=== PATIENT | female | born 1985 | race African-American/Black ===

== ENCOUNTER 2018-01-27 08:12 | Emergency (ER) | payer OTHER ==
--- NOTE | 2018-01-27 08:42 | ED Physician Documentation ---
Abdominal Pain - HISTORIAN Historian: patient - HPI Chief Complaint: Abdominal Pain Additonal Information: rlq abd pain onsdet aprox 1 week-pain w/bm assoc nausea anorexia. pain rad rt lo back and rt leg Onset: days ago (7) Duration: constant, waxing, waning, other (pain constant but acute sharp exab which rad down rt leg and rt thoraco lumbar area) Timing: worse Context: denies: out of country travel, bad food, recent trauma Severity: moderate, severe Quality: pain, dull, sharp (exab) Associated Symptoms: nausea (x 2 days no emesis pos anorexia bowels kicneys ok bm normal color soft but nodiarrhea), loss of appetite Exacerbated by: movements (hurts worse with tension abd muscles or any jarring condition) Relieved by: remaining still - ROS CONST: no problems (no other problems indicated) GI/: denies: constipation, black stools, bloody urine, bloody stools, dark urine CVS/RESP: none EYES/ENT: none MS/SKIN/LYMPH: denies: joint pain, leg swelling, rash, swollen glands NEURO/PSYCH: denies: headache, dizziness, light-headedness, anxiety - SOCIAL HX Smoking History: less than 1 pack/day Alcohol Use: rarely Drug Use: none (down to two cigarettes daily-trying to quit) - FAMILY HX Family History: no significant history - PAST HX Past History: GERD (ov cystsd =-small rt OC x2 - seen by lining strap closer 2weeks ago) Ischemic Bowel Risk Factors: none Other History: none Surgeries/Procedures: appendectomy (ov cysts--rem appy at time), cholecystectomy Allergies/Adverse Reactions: Allergies Allergy/AdvReac Type Severity Reaction Status Date / Time Sulfa (Sulfonamide Allergy Verified 01/27/18 08:52 Antibiotics) - VITAL SIGNS Vital Signs: Vital Signs Temp Pulse Resp BP Pulse Ox 97.7 F 109 H 16 135/106 99 01/27/18 08:12 01/27/18 08:12 01/27/18 08:12 01/27/18 08:12 01/27/18 08:12 - REVIEWED ASSESSMENTS Nursing Assessment Reviewed: Yes Vitals Reviewed: Yes ED Results Lab/Radiology - Lab Results Lab Results: Lab Results 07/18/18 07/18/18 07/18/18 10:45 10:45 09:15 WBC 6.90 K/ul K/ul (4.00-12.00) RBC 4.35 M/ul M/ul (3.90-5.20) Hgb 13.3 g/dL g/dL (12.0-16.0) Hct 41.2 % % (34.5-46.5) MCV 94.6 fl fl (80.0-100.0) MCH 30.5 pg pg (28.0-34.0) MCHC 32.3 g/dL g/dL (30.0-36.0) RDW 11.8 % % (11.3-14.3) Plt Count 294 K/mm3 K/mm3 (130-400) Neut % (Auto) 76.4 % % (39.0-79.0) Lymph % (Auto) 15.1 % L % (16.0-50.0) [place] % (Auto) 5.2 % % (0.0-11.0) Eos % (Auto) 1.9 % % (0.0-6.8) Baso % (Auto) 0.1 (0.0-1.5) Neut # (Auto) 5.3 # k/uL # k/uL (1.4-7.7) Lymph # (Auto) 1.0 # k/uL # k/uL (0.6-4.0) [place] # (Auto) 0.4 # k/uL # k/uL (0.0-0.9) Eos # (Auto) 0.1 # k/uL # k/uL (0.0-0.6) Baso # (Auto) 0.0 # k/uL # k/uL (0.0-0.5) Reactive Lymphs % 1.2 % % (0.0-5.0) Reactive Lymphs # 0.1 # k/uL # k/uL (0.0-0.8) Sodium 141 mmol/L mmol/L (136-145) Potassium 3.5 mmol/L mmol/L (3.5-5.1) Chloride 104 mmol/L mmol/L (98-107) Carbon Dioxide 27 mmol/L mmol/L (22-30) BUN 10 mg/dL mg/dL (7-17) Creatinine 0.70 mg/dL mg/dL (0.52-1.04) Estimated Creat Clear 156 Est GFR ( Amer) > 60 (60 - ) Est GFR (Non-Af Amer) > 60 (60 - ) Glucose 97 mg/dL mg/dL (74-106) Calcium 9.3 mg/dL mg/dL (8.4-10.2) Total Bilirubin 0.7 mg/dL mg/dL (0.2-1.3) AST 22 U/L U/L (15-46) ALT 25 U/L U/L (13-69) Alkaline Phosphatase 60 U/L U/L (38-126) Total Protein 8.2 g/dL g/dL (6.3-8.2) Albumin 4.4 g/dL g/dL (3.5-5.0) Urine Color Yellow (YELLOW) Urine Appearance Clear (CLEAR) Urine pH 7.5 (5.0 - 8.0) Ur Specific [place] 1.020 (1.010-1.030) Urine Protein Negative mg/dL mg/dL (NEGATIVE) Urine Ketones Negative mg/dL mg/dL (NEGATIVE) Urine Occult Blood Trace-intact H (NEGATIVE) Urine Nitrite Negative (NEGATIVE) Urine Bilirubin Negative (NEGATIVE) Urine Urobilinogen 1.0 Eu Eu (0.2-1.0) Ur Leukocyte Esterase Negative (NEGATIVE) Urine Glucose Negative mg/dL mg/dL (NEGATIVE) - Orders Orders: ED Orders Category Date Time Status ABD SERIES PA CHEST [RAD] Stat Exams 01/27/18 Completed CBC/PLATELET/DIFF Routine Lab 01/27/18 10:45 Completed CMP Routine Lab 01/27/18 10:45 Completed UA MACRO DIP ONLY Routine Lab 01/27/18 09:15 Completed traMADol HCL [Ultram] Med 01/27/18 11:52 Discontinued 50 mg PO NOW ONE Abdominal Pain Physical Exam - Physical Exam General Appearance: mild distress, moderate distress EENT: eye inspection normal NECK: normal inspection, thyroid normal, supple RESPIRATORY: no resp distress, chest non-tender, breath sounds normal, rhonchi. No: wheezes, rales CVS: reg rate & rhythm ABDOMEN: soft, tenderness (rt lq tender w/ slight rebound) BACK: normal inspection, no CVA tenderness, CVA tenderness (R), CVA tenderness ( L) SKIN: warm/dry, normal color. No: cyanosis, diaphoresis, mottled EXTREMITIES: non-tender, normal range of motion, no evidence of injury, no edema NEURO: oriented X3, motor nml, sensation nml, mood/affect nml, cognition normal Vital Signs: Vital Signs Temp Pulse Resp BP Pulse Ox 97.7 F 109 H 16 135/106 99 01/27/18 08:12 01/27/18 08:12 01/27/18 08:12 01/27/18 08:12 01/27/18 08:12 Discharge Clincal Impression: un dx abd pain Referrals: Primary Doctor,No [Primary Care Provider] - 2 Days Comments: pt states had to leave re children-signed AMA eval incomplete' pt states she will try laxative and ret if no relief Condition: Stable Disposition: AGAINST MEDICAL ADVICE Decision to Admit: NO Decision Time: 18:42
[2018-01-27 08:52] VITALS: BP 135/106
[2018-01-27 10:51] LABS: BASOPHILS % 0.1 (0.0-1.5); EOSINOPHILS % 1.9 % (0.0-6.8); MEAN CORPUSCULAR HEMOGLOBIN 30.5 pg (28.0-34.0); MEAN CORPUSCULAR VOLUME 94.6 fl (80.0-100.0); MONOCYTES % 5.2 % (0.0-11.0); NEUTROPHILS # 5.3 # k/uL (1.4-7.7)
[2018-01-27 11:03] LABS: eGFR (African) > 60; eGFR (Non-African) > 60
[2018-01-27 11:40] LABS: APPEARANCE,URINE CLEAR (CLEAR); COLOR,URINE YELLOW (YELLOW); OCCULT BLOOD,URINE TRACE-INTACT (NEGATIVE); PH URINE 7.5 (5.0 - 8.0)
[2018-01-27] MEDS ORDERED: traMADol HCL 50 MG TABLET PO ONE (11:52)
--- NOTE | 2018-01-27 18:34 | Diagnostic Imaging Report ---
BREANNA CARDONA [facility] [address] [facility] [address] [place], [place]. [address] Report Submission Date: Jan 27, 2018 9:28:49 AM CDT Patient Study Name: MIREILLE FERRELL Date: Jan 27, 2018 8:50:11 AM CDT Modality Type: DX Gender: F Description: ABDOMEN : 83 Institution: [facility] Physician: BREANNA CARDONA Obstructive series and PA chest History: Abdominal pain PA chest and flat and upright views of the abdomen were obtained which demonstrate the presence of a 1.7 cm noncalcified nodule at the right upper lobe. Chest CT would be recommended. Otherwise, the lungs are clear and heart size is normal. There are bilateral nipple piercings and there is a clitoral piercing. An IUD is present in the pelvis. The bowel gas pattern is nonobstructive. The kidneys are largely obscured by bowel gas and stool. No abnormal renal calcifications are noted. Multiple calcifications are present in the pelvis bilaterally, probably phleboliths but it would be difficult to exclude a distal ureteral stone in this setting. Impression: 1.7 cm right upper lobe nodule, noncalcified. Chest CT would be recommended. Otherwise, please see body of report for further details. Electronically signed on Jan 27, 2018 9:28:49 AM CDT by: Breanna MARTINEZ
== END 2018-01-27 12:00 | disposition left against medical advice (07) ==
LOC: ED 08:12
DX: R10.9 Unspecified abdominal pain (principal); Z53.9 Procedure and treatment not carried out, unspecified reason
CPT/HCPCS: 74022; 80053; 81002; 85025; 99284